=== PATIENT | female | born 1930 | race Caucasian/White ===

== ENCOUNTER 2017-06-17 14:29 | Outpatient (CLI) | payer MEDICARE, OTHER | END 2017-06-17 14:30 | disposition home or self-care (01) | LOC: BICULT 14:29 | PROVIDERS: ATTEND Internal Medicine | DX: I83.90 Asymptomatic varicose veins of unspecified lower extremity (principal); R60.9 Edema, unspecified | CPT/HCPCS: 93970 ==

== ENCOUNTER 2018-07-22 15:56 | Outpatient (CLI) | payer MEDICARE, OTHER ==
--- NOTE | 2018-07-22 16:21 | RAD ---
XR Chest Pa Lat STANDARD HISTORY: Hypertension, shortness of breath COMPARISON: 05/25/2013 FINDINGS: The heart size is enlarged but stable. The aorta is tortuous. The lungs are well expanded w ithout lobar consolidation, pneumothoraces, tyesha pulmonary edema or pleural effusions. There is a 1 cm nodular density in the peripheral aspect of the left upper lobe, not definitely seen on the previous exam. There are degenerative changes in the left shoulder joint. IMPRESSION: 1. No acute process. 2. Left lung nodule. Further evaluation with CT scan is recommended.
--- NOTE | 2018-07-22 16:22 | RAD ---
ABDOMEN 2 VIEWS: HISTORY: Abdominal pain and bloating FINDINGS: There are surgical clips in the abdomen. The bowel gas pattern is unremarkable. There are degenerativ e changes and scoliosis of the spine. Bilateral total hip arthroplasties are present.
== END 2018-07-22 15:57 | disposition home or self-care (01) ==
LOC: BICRAD 15:56
PROVIDERS: ATTEND Internal Medicine
DX: I10 Essential (primary) hypertension (principal); R10.9 Unspecified abdominal pain; R91.1 Solitary pulmonary nodule
CPT/HCPCS: 71046; 74019

== ENCOUNTER 2018-09-01 13:04 | Outpatient (CLI) | payer MEDICARE, OTHER ==
--- NOTE | 2018-09-01 14:55 | RAD ---
PA AND LATERAL CHEST: Date: 09/01/18 HISTORY: Dyspnea. COMPARISON: 07/22/18. FINDINGS: Cardiac silhouette is mildly enlarged. The pulmonary vasculature is within normal limits. The previou sly noted pulmonary nodule lateral aspect left mid lung zone is again seen. Lungs are otherwise clear . Vascular calcifications are seen in the thoracic aorta. IMPRESSION: 1. Left upper lobe pulmonary nodule. CT scan of thorax is recommended for further evaluation. 2. Mild cardiomegaly without overt CHF. POS: [facility]
== END 2018-09-01 13:05 | disposition home or self-care (01) ==
LOC: RAD 13:04
PROVIDERS: ATTEND Internal Medicine Pulmonary Disease
DX: R06.00 Dyspnea, unspecified (principal); R91.1 Solitary pulmonary nodule; I51.7 Cardiomegaly
CPT/HCPCS: 71046

== ENCOUNTER 2018-09-29 13:15 | Outpatient (CLI) | payer MEDICARE, OTHER ==
--- NOTE | 2018-09-29 15:03 | CT ---
NONCONTRAST CT THORAX: 09/29/18 HISTORY: Abnormal recent chest x-ray demonstrating a pulmonary nodule. COMPARISON: Chest x-ray on 09/01/[address] thorax on 06/05/12. FINDINGS: There are postsurgical changes related to interval removal of the bilateral breast prostheses. There is evidence of bilateral mastectomy. Vascular calcifications are seen in the coronary arteries as well as involving the thoracic aorta. La ck of intravenous contrast does limit evaluation of the vascular structures as well as the mediastinu m. No enlarged lymph nodes are seen by CT size criteria. Mild emphysematous changes are seen in the upper lobes bilaterally. There is a noncalcified pulmonary nodule with adjacent patchy density seen within the lateral aspect left upper lobe which is pleural based. Greatest dimension of the mass and adjacent pleural density m easure approximately 2.5 cm x 1.9 cm. This was not seen on prior CT thorax. A ground glass nodular de nsity is seen in the superior segment of the left lower lobe measuring 1.4 cm. There are several smal l subcentimeter nodular densities in the right upper lobe, largest measuring approximately 5 mm. Some of which were seen on the prior study but do appear slightly larger in size. There is a slightly spi culated appearing nodular density within the right upper lobe measuring 1 cm which was not identified on the prior exam. There is scattered mild chronic lung changes with areas of scarring present at each lung base as well as in the lung apices. There is a pleural and parenchymal density in the anterior aspect of the left upper lobe shown to represent an area of subpleural fat with adjacent mild scarring. The visualized upper abdomen demonstrates postsurgical changes related to right nephrectomy as well a s a cholecystectomy. Calcifications are again seen within the spleen, some of which appear to represent dystrophic calcif ications and may be related to prior injury. There is evidence of right adrenalectomy. There is a small ventral abdominal wall hernia incompletely imaged on this exam but was seen on prior study. However, a portion of the anterior wall of the transverse colon extends into this defect. Multilevel degenerative changes are seen in the spine with S-shaped scoliotic curvature of the thorac olumbar spine. No suspicious lytic or sclerotic osseous lesions are seen. There is right glenohumeral osteoarthropathy present. IMPRESSION: 1. Dominant left upper lobe pulmonary nodule measuring 2.5 cm with additional subcentimeter pulm onary nodules in the right upper lobe and a slightly spiculated nodule in the right upper lobe measur ing 1 cm. Ground glass nodule is seen in the superior segment left lower lobe measuring 1.4 cm. While infectious process is a possibility, findings are worrisome for neoplastic process and possibly meta static disease. PET CT scan examination may be helpful for further evaluation. 2. Chronic lung changes. 3. Postsurgical changes upper abdomen. 4. Ventral abdominal wall hernia, incompletely imaged. POS: [facility]
== END 2018-09-29 13:16 | disposition home or self-care (01) ==
LOC: BICCT 13:15
PROVIDERS: ATTEND Internal Medicine Pulmonary Disease
DX: R91.8 Other nonspecific abnormal finding of lung field (principal); K43.9 Ventral hernia without obstruction or gangrene; Z98.890 Other specified postprocedural states
CPT/HCPCS: 71250

== ENCOUNTER 2018-10-28 08:21 | Day surgery (SDC) | payer MEDICARE, OTHER ==
[2018-10-27 15:21] VITALS: BMI 35.6
[2018-10-28 08:41] LABS: #Eosinphils 0.2 thou/uL (0.0-0.7); #Lymphocytes 2.3 thou/uL (1.20-3.40); #Monocytes 0.5 thou/uL (0.11-0.59); #Neutrophils 3.8 thou/uL (1.40-6.50); %Basophils 0.5 % (0.0-1.0); %Eosinophils 2.5 % (0.0-10.0); %Lymphocytes 33.3 % (21.0-51.0); %Monocytes 7.8 % (0.0-10.0); %Neutrophils 55.9 % (42.0-75.0); Hemoglobin 12.7 g/dL (12.0-16.0); Mean Corpuscular HGB CONC 32.1 g/dL (32.0-36.0); Mean Corpuscular Hemoglobin 30.9 pg (27.0-31.0); Mean Corpuscular Volume 96.1 fL (78.0-98.0); Mean Platelet Volume 7.1 fL (7.4-10.4); Platelet Count 198 thou/uL (130-400); RBC Distribution Width 14.1 % (11.5-14.5); Red Blood Cell (RBC) Count 4.11 mill/uL (4.20-5.40); White Blood Cell (WBC) Count 6.9 thou/uL (4.8-10.8)
[2018-10-28 08:51] LABS: INR-International Normal Ratio 0.9; PTT 25.8 SEC (22.9-36.1); Prothrombin Time 12.3 SEC (12.0-14.7)
[2018-10-28 09:58] VITALS: BP 190/69; TEMP 96.9
[2018-10-28] MEDS ORDERED: Fentanyl 100 MCG/2 ML VIAL ONE (10:09)
[2018-10-28] MEDS ORDERED: Sodium Bicarbonate 2.5 MEQ/5 ML VIAL ONE (10:09)
[2018-10-28] MEDS ORDERED: Midazolam HCl 2 mg/2 ml Vial ONE (10:09)
--- NOTE | 2018-10-28 13:43 | CT ---
Exam: Limited CT of the thorax HISTORY: Hypermetabolic left lung mass. FINDINGS: Limited CT was performed as a perioperative educator for a CT-guided biopsy of a left lung mass. Patient was placed on the CT gantry. Despite positioning and multiple attempts to make the patient comfortable, she stated that she could not tolerate the procedure and wished not to continue. Therefo re, the examination was terminated IMPRESSION: Unable to perform the CT-guided biopsy of a suspicious left upper lobe mass. Exam was ter minated at patient's request. Transcribed Date/Time: 10/28/2018 2:47 PM
== END 2018-10-28 12:05 | disposition home or self-care (01) ==
LOC: RAD 08:21
PROVIDERS: ATTEND Internal Medicine Pulmonary Disease
DX: R91.1 Solitary pulmonary nodule (principal); F41.9 Anxiety disorder, unspecified; J45.909 Unspecified asthma, uncomplicated; I50.9 Heart failure, unspecified; Z87.891 Personal history of nicotine dependence; Z53.8 Procedure and treatment not carried out for other reasons; Z79.899 Other long term (current) drug therapy; Z88.8 Allergy status to other drugs, medicaments and biological substances; Z91.040 Latex allergy status; Z91.048 Other nonmedicinal substance allergy status
CPT/HCPCS: 36415; 76380; 85025; 85610; 85730; J2250; J3010

== ENCOUNTER 2019-09-13 14:07 | Outpatient (CLI) | payer MEDICARE, BC ==
--- NOTE | 2019-09-13 14:36 | RAD ---
XR Chest Pa Lat STANDARD HISTORY: Dyspnea COMPARISON: 09/01/2018 FINDINGS: The heart size is mildly enlarged but stable. The peripheral nodular density in the left up per lobe is better visualized on the previous study. There are increased lung markings between the lung nodule and the hilum. No lobar consolidation, pneumothoraces or pleural effusions are seen.
== END 2019-09-13 14:08 | disposition home or self-care (01) ==
LOC: BICRAD 14:07
PROVIDERS: ATTEND Internal Medicine Pulmonary Disease
DX: R06.00 Dyspnea, unspecified (principal)
CPT/HCPCS: 71046

== ENCOUNTER 2019-12-09 12:25 | Outpatient (CLI) | payer MEDICARE, BC ==
--- NOTE | 2019-12-09 12:59 | RAD ---
RADIOGRAPH CHEST 2 VIEW: DATE: 12/09/2019 TIME: 12:42 PM HISTORY: 89-year-old female with dyspnea COMPARISON: 09/13/2019 FINDINGS: The pulmonary mass at the lateral aspect of the anterior segment of the left upper lobe, has become l arger, and is partially obscured by worsening of adjacent infiltrate-like surrounding density which extends from the left upper hilum to the mass. Mild cardiomegaly. New very small left pleural effusion. No pneumothorax. IMPRESSION: 1) interval increase in size of left upper lobe lung mass, and worsening of adjacent surrounding infi ltrate. 2) very small left pleural effusion. 3) cardiomegaly
== END 2019-12-09 12:26 | disposition home or self-care (01) ==
LOC: BICRAD 12:25
PROVIDERS: ATTEND Internal Medicine Pulmonary Disease
DX: R06.00 Dyspnea, unspecified (principal); R91.8 Other nonspecific abnormal finding of lung field; J90 Pleural effusion, not elsewhere classified; I51.7 Cardiomegaly
CPT/HCPCS: 71046

== ENCOUNTER 2019-12-16 11:44 | Outpatient (CLI) | payer MEDICARE, BC ==
--- NOTE | 2019-12-16 14:11 | RAD ---
TWO VIEW ABDOMEN: 12/16/19 Supine and upright views. HISTORY: Dyspnea. Ulcerative colitis. Abdominal pain. COMPARISON: 07/22/18. Upright films shows evidence of pleural effusions blunting the CP angles. No definite evidence of jenniffer e air. Bowel gas pattern is unremarkable with scattered stool and gas in the colon. Scattered small b owel gas without evidence of small bowel dilatation or obstruction. Postoperative changes with rasheed us surgical clips again seen overlying the abdomen. Scoliotic curvature of the spine with severe dege nerative changes in the spine again noted. Bilateral hip prosthesis. IMPRESSION: Unremarkable bowel gas pattern. POS: [facility]
== END 2019-12-16 11:45 | disposition home or self-care (01) ==
LOC: BICRAD 11:44
PROVIDERS: ATTEND Physician Assistant Medical
DX: K51.90 Ulcerative colitis, unspecified, without complications (principal); R06.00 Dyspnea, unspecified
CPT/HCPCS: 74019

== ENCOUNTER 2019-12-26 12:48 | Outpatient (CLI) | payer MEDICARE, BC ==
--- NOTE | 2019-12-26 15:21 | CT ---
CT OF THE THORAX WITHOUT IV CONTRAST: Date: 12/26/2019 INDICATION: History of radiation therapy, bilateral mastectomy, and lung cancer. COMPARISON: Prior PET CT dated 10/07/[address] of the thorax dated 09/29/2018. FINDINGS: The previously seen left upper lobe pulmonary nodule lateral aspect of left upper lobe is obscured by overlying consolidation and likely significantly reduced in size from the comparison examination. Th e consolidation in the left upper lobe is likely related to radiation-induced fibrosis. Patchy around of ground-glass nodular opacity within the superior segment of the left lower lobe is s table appearing. Small sub-4 mm subpleural nodules in the right upper lobe are largely stable. The spiculated nodule w ithin the right upper lobe is slightly increased in size, now measuring 1.1 cm, where previously it m easured 1.0 cm. The small ground-glass nodular opacity in the right upper lobe on image 60 of series 3 is stable appearing. There are subtle new scattered sub-4 mm pulmonary nodules within the right middle lobe on image 89 an d 90 of series 3. There are scattered new sub-4 mm pulmonary nodules in the right lower lobe, particu larly image 69, image 88, image 94, image 104 of the axial series. There is a new sub-4 mm pulmonary nodule left lower lobe image 100 and image 74 of the axial series. Scattered emphysema is similar leeanna earing. There is interval enlargement of an aortopulmonary lymph node measuring 1.1 cm on image 39 of series 1. No pleural effusion is evident. There is coronary artery thoracic aortic calcifications. Visualized upper abdomen demonstrates postsurgical change of a right adrenalectomy. Gallbladder is travis rgically absent. Right kidney is surgically absent. Small granuloma seen within the spleen. Dystrophi c calcifications of the anterior spleen is similar appearing. There is thoracolumbar scoliosis with diffuse osteopenia, scattered degenerative and osteoarthritic c hange. No suspicious osteolytic or osteoblastic lesion is evident. IMPRESSION: 1. Findings consistent with localized response to radiation therapy to the left upper lobe. Known ag gressive appearing pulmonary nodule in the left upper lobe is no longer demonstrated. There are areas of radiation fibrotic change involving the left upper lobe. There are multiple areas of ground-glass nodular and spiculated opacity in the superior segment of the left lower lobe and right upper lobe w hich are largely stable; however, there has been interval development of new small sub-4 mm pulmonary nodules in both lower lobes, as well as the right middle lobe. A short-term CT follow-up in 6-8 week s is recommended to document stability or resolution. Worsening metastatic disease cannot be exclude d. 2. Interval enlargement of an aorticopulmonary lymph node, now measuring 1.1 cm, where previously on the prior CT evaluation measured 3.0 mm. Short-term follow-up in 6-8 weeks is recommended to documen t stability or resolution. CODE T. POS: [facility]
== END 2019-12-26 12:49 | disposition home or self-care (01) ==
LOC: BICCT 12:48
PROVIDERS: ATTEND Radiology Radiation Oncology
DX: C34.12 Malignant neoplasm of upper lobe, left bronchus or lung (principal)
CPT/HCPCS: 71250

== ENCOUNTER 2020-02-15 12:39 | Outpatient (CLI) | payer MEDICARE, BC ==
--- NOTE | 2020-02-15 14:05 | CT ---
CT CHEST WITHOUT CONTRAST: 02/15/20 INDICATIONS: History of breast cancer with lung metastasis. Comparison made to CT chest of 12/26/19. FINDINGS: left upper lobe again shows confluent parenchymal opacity in the peripheral left upper lobe extending to the pleural surface which may represent post radiation change. These parenchymal opacities are st able in appearance. However, there are numerous new pulmonary nodules in the left upper lobe which have developed since p rior exam. These are too numerous to count and measure up to 8 to 10 mm with numerous subcentimeter n odules. Review of the left lower lobe also shows numerous new pulmonary nodules most of which are subcentimet er but two or three measure up to 1.0 cm. Numerous new pulmonary nodules throughout the right lung including right upper lobe, right middle lob e and right lower lobe. The largest of these nodular densities measure in the 1 cm range. No effusion. No evidence of inflammatory infiltrate. Mediastinum again shows enlarged lymph nodes which appear stable. Evidence of right mastectomy. No ev idence of axillary adenopathy. Images through upper abdomen unremarkable. The thoracic vertebrae main tain height and alignment with degenerative changes noted. IMPRESSION: There are numerous new pulmonary nodules seen throughout both lungs when compared to recent exam of 1 . POS: [facility]
== END 2020-02-15 12:40 | disposition home or self-care (01) ==
LOC: BICCT 12:39
PROVIDERS: ATTEND Radiology Radiation Oncology
DX: C78.00 Secondary malignant neoplasm of unspecified lung (principal); R91.8 Other nonspecific abnormal finding of lung field
CPT/HCPCS: 71250

== ENCOUNTER 2020-03-16 10:26 | Outpatient (CLI) | payer MEDICARE, BC ==
[2020-03-16] MEDS ORDERED: Iopamidol 370 76% 100 ML VIAL ONE (10:41)
--- NOTE | 2020-03-16 13:40 | CT ---
CT BRAIN WITH AND WITHOUT CONTRAST: 03/16/20 HISTORY: 89-year-old female with history of multiple pulmonary metastasis. Restaging. Secondary malignancy of lung. Breast cancer and kidney cancer. TECHNIQUE: Precontrast scan of brain IV injection iodinated contrast media. Postcontrast scan of brain FINDINGS: There is no midline shift or any other mass effect. There is no evidence of acute intracranial hemor rhage, large cortical infarct, obstructive hydrocephalus, or extraaxial fluid collection. There is n o abnormal enhancement or mass. The calvarium is intact. There is diffuse parenchymal volume loss. There are low attenuation areas in the white matter. These are nonspecific, but in a patient of this age, they are probably chronic ischemic white matter changes due to microvascular atherosclerosis. T here is an approximately 2 cm ill-defined patchy focus of low attenuation in the right booker radiata , which may represent an old deep white matter infarction. IMPRESSION: 1) No acute or aggressive intracranial findings. 2) Involutional changes and chronic ischemic white matter changes. 3) No evidence of intracranial metastatic disease. jn [] POS: [facility]
--- NOTE | 2020-03-16 13:47 | PET ---
Radionucleotide PET scan with CT attenuation correction HISTORY: Secondary malignant neoplasm of right lung. Metastatic disease. Restaging. COMPARISON: 10/07/2018 PET/CT, 02/15/2020 CT chest. FINDINGS: Focus of increased activity at the left posterior pharynx shows max SUV 5.9 (previously 6.5 ). Uptake at the posterior larynx now shows max SUV 11.5 (previously 8.7). Newly hypermetabolic mediastinal lymph nodes: Short axis diameter: Max SUV Left supraclavicular, 1.4 cm, max SUV 14.8 Prevascular, 0.9 cm, max SUV 11.5 AP window, 0.9 cm, max SUV 13.2 The innumerable, worsening pulmonary masses throughout each lung are again demonstrated. Those of suf ficient size for PET evaluation are hypermetabolic. The nodules with greatest activity are as follows: Left upper lobe, 1.4 cm, max SUV 12.8 Left lower lobe, 1.0 cm, max SUV 17.1 Right upper lobe, 1.3 cm, max SUV 18.7 Right lower lobe, 0.9 cm, max SUV 13.9 No pathologic activity evident within the abdomen/pelvis. IMPRESSION : Abnormal activity associated with the worsening metastatic masses of the lungs and mediastinal/left s upraclavicular adenopathy. Persistent hypermetabolic activity associated with posterior margin of the larynx and left posterior nasopharynx.
== END 2020-03-16 10:27 | disposition home or self-care (01) ==
LOC: PET 10:26 → CT 10:27
PROVIDERS: ATTEND Internal Medicine Hematology & Oncology
DX: C78.01 Secondary malignant neoplasm of right lung (principal); I67.82 Cerebral ischemia; R59.0 Localized enlarged lymph nodes; R91.8 Other nonspecific abnormal finding of lung field; C80.1 Malignant (primary) neoplasm, unspecified
CPT/HCPCS: 70470; 78815; 82565; A9552; Q9967

== ENCOUNTER 2020-04-03 08:26 | Day surgery (SDC) | payer MEDICARE, BC ==
[2020-04-02 12:50] VITALS: BMI 36.8
[2020-04-03 09:00] LABS: Prothrombin Time 13.3 sec (12.0-14.7)
[2020-04-03] MEDS ORDERED: Sodium Bicarbonate 2.5 MEQ/5 ML VIAL ONE (10:42)
--- NOTE | 2020-04-03 12:05 | CT ---
Exam: CT-guided left supraclavicular lymph node biopsy HISTORY: Unknown primary cancer. Lymphadenopathy. Secondary malignant neoplasm of the right lung. FINDINGS: Successful CT-guided biopsy of a left supraclavicular mass/lymph node. Total of two fine-ne edle aspirations with an 18-gauge Franseen needle performed. Sample was placed directly in formalin. TECHNIQUE: Consent obtained to perform a CT-guided biopsy of the left supraclavicular mass/lymph node . Lesion was identified. Skin was prepped and draped in a sterile fashion. 1% lidocaine, buffered with sodium bicarbonate was used for local anesthesia. Under CT guidance, a 17-gauge metallic trocar was advanced into the lymph node. Through this trocar, two separate fine-needle aspirations with an 18-gauge Franseen needle were performed. There was evidence of a postprocedure hematoma in the adjace nt soft tissues. Patient tolerated the procedure well. IMPRESSION: Successful CT-guided biopsy of a left supraclavicular mass/lymph node. Transcribed Date/Time: 04/03/2020 1:43 PM
--- NOTE | 2020-04-03 12:55 | ULT ---
Exam: Limited neck ultrasound HISTORY: Evaluate for possible left supraclavicular lymph node TECHNIQUE: Targeted sonographic imaging of left supraclavicular region was performed. Static images a re reviewed. Real-time imaging was also performed by the radiologist FINDINGS: Static and real-time images do not demonstrate a known left supraclavicular mass. Therefore , the lesion cannot be biopsied with ultrasound guidance. Lesion will be biopsied with CT guidance IMPRESSION: As above
--- NOTE | 2020-04-03 13:03 | CT ---
Exam: Limited CT of the lower neck and chest HISTORY: Status post biopsy of a left supraclavicular lymph node FINDINGS: Stable post procedure stranding of the left supraclavicular soft tissues. Small hematoma is suspected. Small foci of air attenuation likely iatrogenic are noted. No evidence of pneumothorax. Multiple lung nodules are once again demonstrated. IMPRESSION: Stable iatrogenic change in the left supraclavicular region.
[2020-04-03 14:06] VITALS: BP 173/75; TEMP 97.3
--- NOTE | 2020-04-05 09:59 | CT ---
"PRELIMINARY REPORT" Exam: CT-guided left supraclavicular lymph node biopsy HISTORY: Unknown primary cancer. Lymphadenopathy. Secondary malignant neoplasm of the right lung. FINDINGS: Successful CT-guided biopsy of a left supraclavicular mass/lymph node. Total of two fine-ne edle aspirations with an 18-gauge Franseen needle performed. Sample was placed directly in formalin. TECHNIQUE: Consent obtained to perform a CT-guided biopsy of the left supraclavicular mass/lymph node . Lesion was identified. Skin was prepped and draped in a sterile fashion. 1% lidocaine, buffered with sodium bicarbonate was used for local anesthesia. Under CT guidance, a 17-gauge metallic trocar was advanced into the lymph node. Through this trocar, two separate fine-needle aspirations with an 18-gauge Franseen needle were performed. There was evidence of a postprocedure hematoma in the adjace nt soft tissues. Patient tolerated the procedure well. IMPRESSION: Successful CT-guided biopsy of a left supraclavicular mass/lymph node. Transcribed Date/Time: 04/05/2020 9:58 AM
== END 2020-04-03 13:25 | disposition home or self-care (01) ==
LOC: CT 08:26
PROVIDERS: ATTEND Internal Medicine Hematology & Oncology
PROC: 07B23ZX Excision of Left Neck Lymphatic, Percutaneous Approach, Diagnostic (ICD-10-PCS; principal; 2020-04-03)
PROC: 07B23ZX Excision of Left Neck Lymphatic, Percutaneous Approach, Diagnostic (ICD-10-PCS; 2020-04-03)
PROC: BW29ZZZ Computerized Tomography (CT Scan) of Head and Neck (ICD-10-PCS; 2020-04-03)
DX: C78.01 Secondary malignant neoplasm of right lung (principal); C80.1 Malignant (primary) neoplasm, unspecified; I11.0 Hypertensive heart disease with heart failure; I50.9 Heart failure, unspecified; N19 Unspecified kidney failure; E03.9 Hypothyroidism, unspecified; F41.9 Anxiety disorder, unspecified; K50.90 Crohn's disease, unspecified, without complications; D50.9 Iron deficiency anemia, unspecified; Z79.899 Other long term (current) drug therapy; Z87.891 Personal history of nicotine dependence; Z88.5 Allergy status to narcotic agent; Z88.8 Allergy status to other drugs, medicaments and biological substances; Z91.013 Allergy to seafood; Z91.040 Latex allergy status; Z91.048 Other nonmedicinal substance allergy status
CPT/HCPCS: 32408; 36415; 76380; 76999; 77002; 85610; 85730; 88173; 88305; 88313; 88341; 88342